=== PATIENT | female | born 1995 | race African-American/Black ===

== ENCOUNTER 2017-06-04 19:23 | Emergency (ER) | payer OTHER ==
[~2017-06-04] VITALS: Ht 162.6 cm; Wt 117.9 kg
[~2017-06-04 19:23] MED LIST: ADVIL200 M1 PO; MOBIC7.5 MG PO; PENICILLIN V P500 MG PO; PREDNISONE 20 M20 MG PO
[2017-06-04 20:06] LABS: URINE BILIRUBIN NEGATIVE (Negative); URINE BLOOD 3+ (Negative); URINE CLARITY CLEAR; URINE COLOR YELLOW; URINE GLUCOSE-RANDOM* NEGATIVE (Negative); URINE KETONES 3+ (Negative); URINE LEUKOCYTES NEGATIVE (Negative); URINE NITRITE NEGATIVE (Negative); URINE PROTEIN (DIPSTICK) TRACE (Negative); URINE SPECIFIC GRAVITY >= 1.030 (1.005-1.035); URINE UROBILINOGEN 0.2 E.U./dl (0.2-1.0)
[2017-06-04 20:12] LABS: CASTS None Seen /LPF (None Seen); CRYSTALS None Seen /LPF (None Seen); SQUAMOUS >10 Many /LPF (0-3)
[2017-06-04] MEDS ORDERED: PRENATAL COMPL1 EACH PO (20:12)
[2017-06-04 20:13] LABS: URINE RBC >20 Many /HPF (0-2); URINE WBC 0-5 Rare /HPF (0-5)
[2017-06-04 20:50] VITALS: BP 157/77
== END 2017-06-04 20:51 | disposition home or self-care (01) ==
LOC: ER 19:23
PROVIDERS: Emergency Medicine
DX: O20.0 Threatened abortion (principal); Z3A.01 Less than 8 weeks gestation of pregnancy

== ENCOUNTER 2017-08-11 19:57 | Emergency (ER) | payer OTHER ==
[~2017-08-11] VITALS: Ht 162.6 cm; Wt 111.1 kg
[~2017-08-11 19:57] MED LIST changes: +MACROBID 100 M100 M1 PO; +PHENERGAN 25 MG25 M1 PO; +PRENATAL COMPL1 EACH PO
[2017-08-11] MEDS ORDERED: COMPAZINE10 MG PO (20:17)
[2017-08-11 21:26] LABS: ABSOLUTE NEUTROPHILS 7.2 thou/uL (1.4-8.2); BASOPHILS 0.4 % (0.0-2.0); EOSINOPHILS 1.6 % (0.0-3.0); HEMATOCRIT 34.1 % (37.0-47.0); HEMOGLOBIN 11.4 gm/dL (12.0-15.0); LYMPHOCYTES 19.6 % (24.0-44.0); MCH 25.3 pg (26.0-34.0); MCHC 33.5 g/dL (28.0-37.0); MCV 75.7 fL (80.0-100.0); MONOCYTES 6.8 % (1.0-8.0); PLATELET COUNT 408 thou/uL (150-400); POLYS 71.6 % (36.0-66.0); RBC 4.51 mil/uL (4.20-5.00); RDW 21.5 % (10.5-14.5); WBC 10.1 thou/uL (4.0-11.0)
[2017-08-11 22:14] VITALS: BP 115/66
[2017-08-11 22:32] LABS: ANISOCYTOSIS 1+; POLYCHROMASIA OCCASIONAL
== END 2017-08-11 22:27 | disposition home or self-care (01) ==
LOC: ER 19:57
PROVIDERS: Emergency Medicine
DX: O20.0 Threatened abortion (principal); Z3A.14 14 weeks gestation of pregnancy; Z91.040 Latex allergy status; Z88.6 Allergy status to analgesic agent

== ENCOUNTER 2019-12-04 22:28 | Emergency (ER) | payer OTHER ==
[~2019-12-04] VITALS: Ht 162.6 cm; Wt 109.3 kg
[~2019-12-04 22:28] MED LIST changes: +COMPAZINE10 MG PO
[2019-12-04 23:06] LABS: URINE BILIRUBIN NEGATIVE (Negative); URINE BLOOD TRACE (Negative); URINE CLARITY CLEAR; URINE COLOR YELLOW; URINE GLUCOSE-RANDOM* NEGATIVE (Negative); URINE KETONES NEGATIVE (Negative); URINE NITRITE-REFLEX NEGATIVE (Negative); URINE PROTEIN (DIPSTICK) NEGATIVE (Negative); URINE UROBILINOGEN 0.2 E.U./dl (0.2-1.0)
[2019-12-04 23:08] LABS: ABSOLUTE NEUTROPHILS 6.5 thou/uL (1.4-8.2); BASOPHILS 0.6 % (0.0-2.0); EOSINOPHILS 1.3 % (0.0-3.0); HEMATOCRIT 31.8 % (37.0-47.0); HEMOGLOBIN 10.5 gm/dL (12.0-15.0); LYMPHOCYTES 16.1 % (24.0-44.0); MCH 24.7 pg (26.0-34.0); MCHC 33.1 g/dL (28.0-37.0); MCV 74.7 fL (80.0-100.0); PLATELET COUNT 376 thou/uL (150-400); RBC 4.26 mil/uL (4.20-5.00); RDW 21.7 % (10.5-14.5); WBC 8.5 thou/uL (4.0-11.0)
[2019-12-04 23:11] LABS: URINE LEUKOCYTES-REFLEX 2+ (Negative)
[2019-12-04 23:14] LABS: BACTERIA-REFLEX 1-9 Few /HPF (None Seen); CASTS None Seen /LPF (None Seen); CRYSTALS None Seen /LPF (None Seen); MUCUS None Seen strn/LPF (None Seen); SQUAMOUS 4-10 Moderate /LPF (0-3); TRANSITIONAL EPITHEL CELL 4-10 Moderate /LPF (None Seen); URINE RBC 0-2 Rare /HPF (0-2)
[2019-12-04 23:16] LABS: CALCIUM 8.8 mg/dL (8.5-10.1); POTASSIUM 3.9 mmol/L (3.5-5.1)
[2019-12-04 23:22] LABS: ALBUMIN 3.3 g/dL (3.4-5.0); TOTAL BILIRUBIN 0.3 mg/dL (0.2-1.0); TOTAL PROTEIN 8.5 g/dL (6.4-8.2)
[2019-12-05] MEDS ORDERED: FLAGYL500 M1 PO (02:09)
[2019-12-05] MEDS ORDERED: DOXYCYCLINE 10100 MG PO (02:09)
[2019-12-05 02:14] VITALS: BP 116/59
== END 2019-12-05 02:19 | disposition home or self-care (01) ==
LOC: ER 22:28
PROVIDERS: Emergency Medicine
DX: O86.12 Endometritis following delivery (principal); Z79.899 Other long term (current) drug therapy; Z91.040 Latex allergy status; Z88.8 Allergy status to other drugs, medicaments and biological substances